=== PATIENT | male | born 1955 | race Caucasian/White ===

== ENCOUNTER 2024-02-13 10:01 | Outpatient (CLI) | payer MEDICARE, SELFPAY ==
--- NOTE | ~2024-02-13 | US_ITS ---
Limited ABDOMINAL ULTRASOUND Ordering provider: Eliel Sun DO History: . R10.11 - Right upper quadrant pain . Comparison: None. FINDINGS: LIVER: Normal size and echotexture. No focal hepatic lesions or perihepatic fluid collections are kenan ntified. Normal flow of the portal vein. The liver measures 15.7 cm. GALLBLADDER: Unremarkable. No evidence for stones, sludge, gallbladder wall thickening or pericholecy stic fluid collections. A negative sonographic Segura's sign was noted. BILIARY DUCTS: No evidence for intra or extrahepatic biliary dilation. Common bile duct measures 3.5 mm in diameter which is within normal limits. PANCREAS: Normal visualized portions. FREE FLUID: None. IMPRESSION: Unremarkable limited ultrasound of the abdomen. Reviewed, dictated and finalized at location A.
== END 2024-02-13 10:02 | disposition home or self-care (01) ==
PROVIDERS: PCP Family Medicine; Visit Provider Family Medicine
DX: E78.5 Hyperlipidemia, unspecified (principal); K21.9 Gastro-esophageal reflux disease without esophagitis; K58.9 Irritable bowel syndrome, unspecified; R10.11 Right upper quadrant pain
CPT/HCPCS: 76705